=== PATIENT | female | born 1990 | race African-American/Black ===

== ENCOUNTER 2018-06-12 09:21 | Outpatient (CLI) | payer OTHER ==
--- NOTE | 2018-06-12 11:32 | ULT ---
OBSTETRIC SONOGRAM: History: High risk . Second trimester. FINDINGS: Multiple transabdominal sonographic views of a gravid uterus show a single intrauterine gestation in cephalic presentation. Cervix is not well visualized due to the cranium. Grade 0 placenta is an terior. No gross intracranial abnormalities. Four chamber heart shows motion at 151 beats/minute. Fet al spine and kidneys are intact as visualized. Three vessel cord shows a normal insertion. Amniotic f luid appears lower limits of normal but GIL equals 9.12. Measurements are as follows: BPD 20 weeks 0 days HC 20 weeks 0 days AC 20 weeks 6 days FL 20 weeks 0 days Estimated date of delivery based on today's sonogram is 317-19. Hadlock percentile 63%. IMPRESSION: Single viable intrauterine gestation with estimated gestational age based on today's sonogram of 20 w eeks 2 days. POS: [facility]
== END 2018-06-12 09:22 | disposition home or self-care (01) ==
LOC: BICULT 09:21
PROVIDERS: ATTEND Family Medicine
DX: O09.892 Supervision of other high risk pregnancies, second trimester (principal); Z3A.20 20 weeks gestation of pregnancy
CPT/HCPCS: 76805

== ENCOUNTER 2018-09-23 23:09 | Day surgery (SDC) | payer OTHER ==
[2018-09-23 23:47] VITALS: BP 142/85; TEMP 98.6; BMI 39.4
--- NOTE | 2018-09-24 00:06 | PDOC.LDHP ---
Labor and Delivery H&P Chief complaint: contractions HPI: 28 y/o at 36w2d, patient of Dr. Haines, presents with ctx. Started this morning and have gotten more painful and frequent. Denies VB, LOF, or decreased FM. ROS neg for HEENT, CV, pulm, GI, , neuro, psych, skin, musculoskeletal, or constitutional symptoms other than mentioned above. OB History Details: 1st delivery at 34 weeks for preeclampsia - LTCS 2nd at 36 weeks for PROM - RLTCS Current complications: none Current medications: pre- vitamins Previous surgical history: low tranverse CS (x2) Allergies/Adverse Reactions: Allergies Allergy/AdvReac Type Severity Reaction Status Date / Time meperidine HCl [From Demerol] Allergy Rash,Itchin Verified 07/27/16 01:59 g Social history: none - Physical Exam Vital signs reviewed and normal: yes Abnormal vital signs: mild range BPs General: NAD, resting Lungs: nonlabored breathing Abdomen: gravid Extremeties: no edema FHT: category 1 [employer] contractions every: 4 mins - Vaginal Exam cm dilated: 1 (unchanged after 4 hours) Effacement: 50% Station: -3 - Assessment 28 y/o at 36w2d with no e/o active labor. status reassuring with reactive NST. - Plan -: D/c home with precautions. Advised to follow up with Dr. Haines.
[2018-09-24] MEDS ORDERED: Lactated Ringer's 1,000 ML IV SCH (00:15)
[2018-09-24 00:31] LABS: #Basophils 0.1 thou/uL (0.0-0.2); #Eosinphils 0.1 thou/uL (0.0-0.7); #Lymphocytes 2.3 thou/uL (1.20-3.40); #Monocytes 0.5 thou/uL (0.11-0.59); #Neutrophils 4.4 thou/uL (1.40-6.50); %Basophils 1.6 % (0.0-1.0); %Eosinophils 0.8 % (0.0-10.0); %Monocytes 6.5 % (0.0-10.0); %Neutrophils 60.2 % (42.0-75.0); Hemoglobin 11.9 g/dL (12.0-16.0); Mean Corpuscular HGB CONC 33.9 g/dL (32.0-36.0); Mean Corpuscular Volume 94.2 fL (78.0-98.0); Mean Platelet Volume 7.9 fL (7.4-10.4); Platelet Count 218 thou/uL (130-400); Red Blood Cell (RBC) Count 3.71 mill/uL (4.20-5.40); White Blood Cell (WBC) Count 7.4 thou/uL (4.8-10.8)
[2018-09-24 00:46] LABS: ALT (SGPT) 19 U/L (8-55); AST (SGOT) 22 U/L (5-34); Albumin 3.9 g/dL (3.5-5.0); Alkaline Phosphatase 109 U/L (40-150); Anion Gap 17 mmol/L (10-20); BUN (Urea Nitrogen) 7 mg/dL (7.0-18.7); Bilirubin, Total 0.5 mg/dL (0.2-1.2); Calc. Creatinine Clearance 193 mL/min (70-130); Calcium 9.4 mg/dL (7.8-10.44); Carbon Dioxide 19 mmol/L (22-29); Chloride 106 mmol/L (98-107); Estimated GFR-MDRD Greater than 90; Globulin 2.7 g/dL (2.4-3.5); Glucose 94 mg/dL (70-105); Potassium 4.1 mmol/L (3.5-5.1); Protein, Total 6.6 g/dL (6.0-8.3); Sodium 138 mmol/L (136-145)
[2018-09-24 01:05] LABS: Creatinine, Urine 107.14 mg/dL (47-110); Protein, Urine Random Quant Less than 10 mg/dL (1-14)
[2018-09-24] MEDS ORDERED: Butorphanol Tartrate 1 MG/ML VIAL SLOW IVP PRN (01:31)
== END 2018-09-24 04:10 | disposition home or self-care (01) ==
LOC: L&D/OP 23:09
PROVIDERS: ATTEND Family Medicine
DX: O47.03 False labor before 37 completed weeks of gestation, third trimester (principal); Z3A.36 36 weeks gestation of pregnancy; Z79.899 Other long term (current) drug therapy; Z88.5 Allergy status to narcotic agent
CPT/HCPCS: 80053; 82570; 84156; 85025; 96360; 96361; 99284

== ENCOUNTER 2018-09-29 01:52 | Inpatient (IN) | payer OTHER ==
[2018-09-29 02:17] VITALS: BMI 39.3
[2018-09-29] MEDS ORDERED: Bicitra 30 ML UDCUP PO SCH (02:45)
[2018-09-29] MEDS ORDERED: Lactated Ringer's 1,000 ML IV SCH ×2 (02:51)
[2018-09-29] MEDS ORDERED: Ondansetron PF 4 MG/2 ML Vial IVP PRN ×4 (02:51→11:40)
[2018-09-29] MEDS ORDERED: Promethazine HCl 25 MG/ML VIAL IM PRN ×3 (02:51→11:40)
[2018-09-29] MEDS ORDERED: Azithromycin 500 MG in Sodium Chloride 0.9% 250 ML 250 ML IVPB SCH (03:00)
[2018-09-29] MEDS ORDERED: Naloxone HCl 0.4 mg/ml Vial IVP PRN ×2 (03:02)
[2018-09-29] MEDS ORDERED: Ketorolac Tromethamine 30 MG/ML VIAL IVP PRN ×2 (03:02→11:40)
[2018-09-29] MEDS ORDERED: Hydrocerin (Eucerin) Cream 120 gm Jar TOP PRN ×2 (03:02→11:40)
[2018-09-29] MEDS ORDERED: Ondansetron HCl/PF 4 MG/2 ML Vial IVP PRN ×2 (03:02→07:09)
[2018-09-29] MEDS ORDERED: Promethazine HCl 25 MG SUPP PR PRN ×2 (03:02→11:40)
[2018-09-29] MEDS ORDERED: L&D-Morphine 4 MG/ML VIAL SLOW IVP PRN ×2 (03:02→07:09)
[2018-09-29] MEDS ORDERED: HYDROmorphone 2 MG/ML VIAL SLOW IVP PRN ×2 (03:02→07:09)
[2018-09-29] MEDS ORDERED: Naloxone HCl 0.4 mg/ml Vial IV PRN ×4 (03:02→11:40)
[2018-09-29] MEDS ORDERED: diphenhydrAMINE 50 MG/ML VIAL IVP PRN ×2 (03:02→11:40)
[2018-09-29 03:06] LABS: Hemoglobin 12.2 g/dL (12.0-16.0); Mean Corpuscular HGB CONC 34.4 g/dL (32.0-36.0); Mean Corpuscular Hemoglobin 32.8 pg (27.0-31.0); Mean Corpuscular Volume 95.3 fL (78.0-98.0); Mean Platelet Volume 7.7 fL (7.4-10.4); Platelet Count 229 thou/uL (130-400); RBC Distribution Width 12.1 % (11.5-14.5); Red Blood Cell (RBC) Count 3.71 mill/uL (4.20-5.40); White Blood Cell (WBC) Count 6.7 thou/uL (4.8-10.8)
[2018-09-29] MEDS ORDERED: Oxytocin 10 UNITS/ML VIAL ONE (03:07)
[2018-09-29] MEDS ORDERED: Ondansetron PF 4 MG/2 ML Vial ONE ×2 (03:07→13:56)
[2018-09-29] MEDS ORDERED: Dexamethasone 4 mg/ml Vial ONE (03:07)
[2018-09-29] MEDS ORDERED: MORPHINE 5 MG/10 ML PF VIAL ONE (03:07)
[2018-09-29] MEDS ORDERED: Ketorolac Tromethamine 30 MG/ML VIAL ONE ×2 (03:07→13:56)
[2018-09-29] MEDS ORDERED: PHENYLEPHRINE-NS 100 MCG/ML 10 ML SYRINGE ONE ×2 (03:08→13:56)
[2018-09-29] MEDS ORDERED: Ketorolac Tromethamine 30 MG/ML VIAL IVP SCH ×2 (03:15→07:15)
[2018-09-29] MEDS ORDERED: Communication Order-Pharmacy FS SCH (03:15)
[2018-09-29 03:46] LABS: Syphilis Antibody Nonreactive (Nonreactive); Syphilis Antibody Index 0.03 S/CO (<1.00 Non-Reactive)
[2018-09-29 03:47] LABS: HBSAg Index 0.33 S/CO (0-0.99); Hep B Surf Ag Non-Reactive S/CO (NonReactive)
--- NOTE | 2018-09-29 05:49 | OP ---
DATE OF PROCEDURE: 09/29/2018 PREOPERATIVE DIAGNOSES: 1. 35-week . 2. Previous section x2. 3. labor with rupture of membranes. POSTOPERATIVE DIAGNOSES: 1. 35-week . 2. Previous section x2. 3. labor with rupture of membranes. PROCEDURE PERFORMED: Repeat low cervical transverse section. OUTGOING INSPECTOR: Dr. Orozco. ANESTHESIA: Spinal. DESCRIPTION OF PROCEDURE: After informed consent was obtained from the patient , she was taken to the operating room, where spinal anesthesia was administered. She was prepped and draped in the usual sterile fashion. A Pfannenstiel incision was created over the previous incision and carried down to the fascia. Skin bleeders were coagulated with the Bovie. The fascia was nicked in the midline and the incision was extended transversely with Obregon scissors. The superior fascial segments were grasped with Kochers and elevated, and the underlying rectus muscles were dissected free with blunt dissection with the Obregon scissors. This was repeated with the inferior fascial segment. The rectus muscles were divided in the midline with Obregon scissors and the rectus muscles were divided transversely, approximately 3 cm bilaterally for extra room, as the tissues in the abdomen were fairly noncompliant. The bladder blade was inserted. The uterus was entered in a low transverse fashion with a clean #10 scalpel blade. The hysterotomy was extended with blunt dissection. Clear amniotic fluid was encountered. The vertex was delivered on to the operative field, followed by the remainder of the infant without difficulty. The oropharynx and nares were bulb suctioned. The cord was clamped and was delayed 30 seconds before the cord was cut and the vigorous male handed off to the staff in attendance. Cord blood was obtained. The placenta was expressed and then removed with gentle cord traction. The uterus was exteriorized and freed of clots and debris. The uterus was repaired with a running locking suture of 0 Vicryl in a single full-thickness layer, starting from each corner and meeting in the middle. A small branch of the R uterine artery was lacerated with delivery and small hematoma formed at the right corner, so a series of figure-of -eight sutures were placed along the incision line and also above and below the right corner of the uterine incision for hemostasis, which was observed. The abdomen was copiously irrigated with saline. The uterus was returned to the abdomen. The incision was once again inspected for hemostasis and to ensure no expansion of the small hematoma on the right corner was expanding, both of which were noted. Peritoneum was repaired with a running suture of 3-0 Vicryl. The facia was repaired with a running suture of 0 PDS. 3 interrupted sutures of 3-0 Vicryl were placed in the subdermal layer to reapproximate the skin, which was closed with skin mehnaz. Sponge and instrument counts were correct x4. She tolerated the procedure well and suffered no acute complications. She was taken to recovery room in stable condition and the to the NICU in stable condition. FINDINGS: Viable male infant, 5 pounds 7 ounces. COMPLICATIONS: None. ESTIMATED BLOOD LOSS: 900, QBL pending at the time of the dictation. Job ID: [id number] [facility]
[2018-09-29] MEDS ORDERED: NS / Oxytocin 40 units/1000ml 1,000 ML IV SCH (05:54)
[2018-09-29] MEDS ORDERED: Adacel (T-DAP) 0.5 ML SYRINGE IM ONE (05:54)
[2018-09-29] MEDS ORDERED: Bisacodyl 10 MG SUPP PR PRN (05:54)
[2018-09-29] MEDS ORDERED: HYDROcodone/Acetaminophen 5/325 mg Tablet PO PRN ×2 (05:54)
[2018-09-29] MEDS ORDERED: Lanolin Ointment 7 GM TUBE TOP PRN (05:54)
[2018-09-29] MEDS ORDERED: Ibuprofen 800 MG TAB PO SCH (06:00)
[2018-09-29] MEDS ORDERED: Sodium Chloride 0.9% 10 ML ONE (09:35)
[2018-09-29] MEDS: Prenatal Vitamin 1 TAB PO SCH (10:01)
[2018-09-29] MEDS: Ferrous Sulfate 325 MG TAB PO SCH ×2 (10:01→22:30)
[2018-09-29] MEDS: Docusate Calcium (SURFAK) 240 MG CAP PO SCH ×2 (10:02→19:33)
[2018-09-29] MEDS: Morphine 2 MG/ML SYRINGE SLOW IVP PRN ×2 (10:46→13:07)
[2018-09-29] MEDS: diphenhydrAMINE 25 MG CAP PO PRN ×3 (10:49→23:39)
[2018-09-29] MEDS ORDERED: NO PO,IM,IV OR SC NARCOTICS FOR 12HR EXCEPT BY ANESTHESIA PO SCH (11:40)
[2018-09-29] MEDS ORDERED: Dexamethasone 20 MG/5 ML VIAL ONE (13:56)
[2018-09-29] MEDS: Simethicone Chewable 80 MG TAB PO PRN (15:42)
[2018-09-29] MEDS: HYDROcodone/Acetaminophen 5/325 mg Tablet PO PRN (19:32)
[2018-09-29] MEDS: Ibuprofen 800 MG TAB PO SCH (22:31)
[2018-09-30] MEDS: HYDROcodone/Acetaminophen 5/325 mg Tablet PO PRN ×4 (04:37→18:16)
[2018-09-30] MEDS: Simethicone Chewable 80 MG TAB PO PRN (05:22)
[2018-09-30] MEDS: Ibuprofen 800 MG TAB PO SCH ×3 (05:22→20:20)
[2018-09-30 07:53] LABS: Mean Corpuscular HGB CONC 33.3 g/dL (32.0-36.0); Mean Corpuscular Hemoglobin 31.9 pg (27.0-31.0); Mean Corpuscular Volume 95.9 fL (78.0-98.0); Mean Platelet Volume 7.6 fL (7.4-10.4); Platelet Count 237 thou/uL (130-400); Red Blood Cell (RBC) Count 3.13 mill/uL (4.20-5.40); White Blood Cell (WBC) Count 8.5 thou/uL (4.8-10.8)
[2018-09-30] MEDS: Prenatal Vitamin 1 TAB PO SCH (08:34)
[2018-09-30] MEDS: Docusate Calcium (SURFAK) 240 MG CAP PO SCH ×2 (08:35→20:20)
[2018-09-30] MEDS: Ferrous Sulfate 325 MG TAB PO SCH ×2 (10:37→21:04)
[2018-09-30] MEDS ORDERED: Ibuprofen 800 MG TAB PO SCH (14:00)
[2018-10-01] MEDS: HYDROcodone/Acetaminophen 5/325 mg Tablet PO PRN ×4 (03:19→21:13)
[2018-10-01] MEDS: Ibuprofen 800 MG TAB PO SCH ×3 (06:37→17:14)
[2018-10-01] MEDS: Simethicone Chewable 80 MG TAB PO PRN ×3 (06:41→21:16)
[2018-10-01] MEDS: Ferrous Sulfate 325 MG TAB PO SCH ×2 (08:00→22:16)
[2018-10-01] MEDS: Prenatal Vitamin 1 TAB PO SCH (08:01)
[2018-10-01] MEDS: Docusate Calcium (SURFAK) 240 MG CAP PO SCH ×2 (08:01→22:16)
[2018-10-02] MEDS: Ibuprofen 800 MG TAB PO SCH ×4 (00:01→21:28)
[2018-10-02] MEDS: Ferrous Sulfate 325 MG TAB PO SCH ×2 (07:39→21:28)
[2018-10-02] MEDS: Prenatal Vitamin 1 TAB PO SCH (07:54)
[2018-10-02] MEDS: Simethicone Chewable 80 MG TAB PO PRN ×2 (07:54→19:17)
[2018-10-02] MEDS: HYDROcodone/Acetaminophen 5/325 mg Tablet PO PRN ×3 (07:54→19:17)
[2018-10-02] MEDS: Docusate Calcium (SURFAK) 240 MG CAP PO SCH ×2 (07:55→21:28)
[2018-10-03] MEDS: HYDROcodone/Acetaminophen 5/325 mg Tablet PO PRN ×3 (00:24→13:24)
[2018-10-03 08:53] VITALS: BP 133/72; TEMP 98.4
[2018-10-03] MEDS: Prenatal Vitamin 1 TAB PO SCH (09:03)
[2018-10-03] MEDS: Ibuprofen 800 MG TAB PO SCH (09:03)
[2018-10-03] MEDS: Docusate Calcium (SURFAK) 240 MG CAP PO SCH (09:04)
[2018-10-03] MEDS: Ferrous Sulfate 325 MG TAB PO SCH (09:05)
== END 2018-10-03 14:12 | disposition home or self-care (01) | DRG 788 ==
LOC: L&D/OP 01:52 → L&D 02:47 → 3SW 08:15
PROVIDERS: ADMIT Family Medicine; ATTEND Family Medicine
PROC: 10D00Z1 Extraction of Products of Conception, Low, Open Approach (ICD-10-PCS; principal; 2018-09-29)
DX: O42.013 Preterm premature rupture of membranes, onset of labor within 24 hours of rupture, third trimester (principal); Z3A.35 35 weeks gestation of pregnancy; Z37.0 Single live birth; O34.219 Maternal care for unspecified type scar from previous cesarean delivery
CPT/HCPCS: 36415; 51702; 85027; 86780; 86850; 86900; 86901; 87340; 88307; 99285; J0456; J1100; J1170; J1885; J2270; J2405; J2590; J7050; Q0163

== ENCOUNTER 2022-09-08 14:06 | Emergency (ER) | payer OTHER, SELFPAY | END 2022-09-08 14:16 | disposition left against medical advice (07) | LOC: ERS 14:06 | DX: Z53.21 Procedure and treatment not carried out due to patient leaving prior to being seen by health care provider (principal) ==